=== PATIENT | male | born 1965 | race Caucasian/White ===

== ENCOUNTER 2017-01-27 13:31 | Emergency (ER) | payer OTHER ==
[2017-01-27 13:43] VITALS: BP 148/93; PULSE 75; RESP 16; TEMP 98.4; O2SAT 96
[2017-01-27] MEDS ORDERED: TDAP ADULT 0.5 ML INJ (BOOSTRIX) IM ONE (13:43)
--- NOTE | 2017-01-27 13:50 | EDPHY ---
H & P Stated Complaint: Insect bite to R chest x 8 days ago. Redness and purulent discharge. Time Seen by Provider: 01/27/17 13:47 HPI/ROS: CHIEF COMPLAINT: Spider bite HISTORY OF PRESENT ILLNESS: Patient is a 51-year-old man who comes to the emergency department complaining of a small abscess on his right lower chest just below his pectoralis. He 1st noticed it on Friday. Yesterday it opened and did began to drain. He has not had a fever. He did not see any spider or insect. He does not use IV drugs and is not immunocompromised. REVIEW OF SYSTEMS: Constitutional: denies: chills, fever, recent illness, recent injury EENTM: denies: blurred vision, double vision, nose congestion Respiratory: denies: cough, shortness of breath Cardiac: denies: chest pain, irregular heart rate, lightheadedness, palpitations Gastrointestinal/Abdominal: denies: abdominal pain, diarrhea, nausea, vomiting, blood streaked stools Genitourinary: denies: dysuria, frequency, hematuria, pain Musculoskeletal: denies: joint pain, muscle pain Skin: See HPI Neurological: denies: headache, numbness, paresthesia, tingling, dizziness, weakness Hematologic/Lymphatic: denies: blood clots, easy bleeding, easy bruising Immunologic/allergic: denies: HIV/AIDS, transplant EXAM: GENERAL: Well-appearing, well-nourished and in no acute distress. HEAD: Atraumatic, normocephalic. EYES: Pupils equal round and reactive to light, extraocular movements intact, sclera anicteric, conjunctiva are normal. ENT: TMs normal, nares patent, oropharynx clear without exudates. Moist mucous membranes. NECK: Normal range of motion, supple without lymphadenopathy or JVD. LUNGS: Breath sounds clear to auscultation bilaterally and equal. No wheezes rales or rhonchi. HEART: Regular rate and rhythm without murmurs, rubs or gallops. ABDOMEN: Soft, nontender, normoactive bowel sounds. No guarding, no rebound. No masses appreciated. BACK: No CVA tenderness, no spinal tenderness, step-offs or deformities EXTREMITIES: Normal range of motion, no pitting or edema. No clubbing or cyanosis. NEUROLOGICAL: Cranial nerves II through XII grossly intact. Normal speech, normal gait. 5/5 strength, normal movement in all extremities, normal sensation PSYCH: Normal mood, normal affect. SKIN: Small partially drained abscess right anterior lower chest, minimal erythema surrounding ulceration with purulence in the middle. Source: Patient Exam Limitations: No limitations - Personal History Current Tetanus/Diphtheria Vaccine: No Current Tetanus Diphtheria and Acellular Pertussis (TDAP): No - Medical/Surgical History Hx Asthma: Yes Hx Chronic Respiratory Disease: No Hx Diabetes: No Hx Cardiac Disease: No Hx Renal Disease: No Hx Cirrhosis: No Hx Alcoholism: No Hx HIV/AIDS: No Hx Splenectomy or Spleen Trauma: No Other PMH: asthma, ortho surgeries - Family History Significant Family History: No pertinent family hx - Social History Smoking Status: Former smoker Alcohol Use: Sober Drug Use: None Constitutional: Initial Vital Signs Temperature (C) 36.9 C 01/27/17 13:33 Heart Rate 75 01/27/17 13:33 Respiratory Rate 16 01/27/17 13:33 Blood Pressure 148/93 H 01/27/17 13:33 O2 Sat (%) 96 01/27/17 13:33 O2 Delivery Mode Room Air Allergies/Adverse Reactions: aspirin Allergy (Unknown, Verified 01/27/17 13:43) Unknown Penicillins Allergy (Unknown, Verified 01/27/17 13:43) Unknown Home Medications: Medication Instructions Recorded NK [No Known Home Meds] 01/27/17 Medical Decision Making Procedures: Procedure: Abscess drainage. The patient's abscess was located on the chest. I obtained verbal consent from the patient to drain the abscess who was informed about the possibility of bleeding and pain. The abscess was incised with hemostats and small amount of purulent drainage was expressed. I irrigated the wound and placed some packing. The patient tolerated the procedure well. The procedure was performed by myself. ED Course/Re-evaluation: Patient tolerated the procedure well. We discussed continued care and treatment. I do not think that he will require antibiotics. He is allergic to amoxicillin for unknown reaction. He had allergy testing as a child. We discussed wound care and packing removal. Differential Diagnosis: Partial list of the Differential diagnosis considered include but were not limited to; insect bite, sting, abscess, and although unlikely based on the history and physical exam, I also considered cellulitis, sepsis. I discussed these differential diagnoses and the plan with the patient as well as the usual and expected course. The patient understands that the diagnosis is provisional and that in medicine we are not always correct and that further workup is often warranted. Usual and customary warnings were given. All of the patient's questions were answered. The patient was instructed to return to the emergency department should the symptoms at all worsen or return, otherwise to followup with the physician as we discussed. - Data Points Medications Given: Discontinued Medications Diphtheria/Tetanus/Acell Pertussis (Boostrix) 0.5 ml IM .ONCE ONE Stop: 01/27/17 13:44 Last Admin: 01/27/17 14:02 Dose: 0.5 ml Departure - Departure Disposition: Home, Routine, Self-Care Clinical Impression: Abscess Condition: Fair Instructions: Abscess (ED) Referrals: NONE *PRIMARY CARE P,. [Primary Care Provider] - As per Instructions Alcides Marks MD [Medical Doctor] - As per Instructions
== END 2017-01-27 14:15 | disposition home or self-care (01) ==
LOC: CED 13:31
PROC: 0H95XZZ Drainage of Chest Skin, External Approach (ICD-10-PCS; principal; 2017-01-27)
DX: L02.213 Cutaneous abscess of chest wall (principal); J45.909 Unspecified asthma, uncomplicated; Z87.891 Personal history of nicotine dependence; Z23 Encounter for immunization